=== PATIENT | male | born 1935 | race African-American/Black ===

== ENCOUNTER 2020-05-17 05:31 | Emergency (ER) | payer OTHER ==
[~2020-05-17] VITALS: Ht 182.9 cm; Wt 87.0 kg
[2020-05-17] MEDS ORDERED: SODIUM CHLORIDE 0.9% 250 ML IV ONE (07:00)
[2020-05-17 08:22] LABS: CLARITY URINE CLOUDY (CLEAR); COLOR URINE YELLOW (YELLOW); KETONES URINE NEGATIVE (NEGATIVE); LEUKOCYTE ESTERASE URINE NEGATIVE (NEGATIVE); NITRITE URINE NEGATIVE (NEGATIVE); OCCULT BLOOD URINE 2+ (NEGATIVE); PROTEIN URINE 1+ (NEGATIVE); SPECIFIC GRAVITY URINE 1.014 (1.005-1.030)
[2020-05-17 08:54] LABS: BASOPHILS % 0.3 % (0.0-2.0); EOSINOPHILS % 0.5 % (0.0-5.0); HEMATOCRIT. 35.6 % (42.0-52.0); HEMOGLOBIN. 12.4 g/dL (14.0-18.0); LYMPHOCYTES % 8.7 % (20.0-50.0); MEAN CORPUSCULAR HEMOGLOBIN 33.3 pg (28.0-32.0); MEAN CORPUSCULAR VOLUME 95.7 fL (80.0-94.0); MEAN PLATELET VOLUME 9.2 fl (7.4-10.4); MONOCYTES % 7.9 % (2.0-8.0); NEUTROPHILS % 82.6 % (40.0-76.0); PLATELET 142 x1000/uL (130-400); RED BLOOD CELL COUNT 3.72 mill/uL (4.7-6.1); RED CELL DISTRIBUTION WIDTH 13.2 % (11.6-14.6)
[2020-05-17] MEDS ORDERED: CEFTRIAXONE 1 G PREMIX 50 ML IV ONE (09:00)
[2020-05-17 09:45] LABS: CHLORIDE 111 mEq/L (98-107)
[2020-05-17 10:49] LABS: INR 1.1
[2020-05-17 12:41] VITALS: BP 142/64
== END 2020-05-17 13:10 | disposition short-term general hospital (02) ==
LOC: ER 05:31 → CANBEDREQ 16:24
DX: I63.9 Cerebral infarction, unspecified (principal); N39.0 Urinary tract infection, site not specified; E78.00 Pure hypercholesterolemia, unspecified; G30.9 Alzheimer's disease, unspecified; F02.80 Dementia in other diseases classified elsewhere, unspecified severity, without behavioral disturbance, psychotic disturbance, mood disturbance, and anxiety; I48.91 Unspecified atrial fibrillation; Z85.46 Personal history of malignant neoplasm of prostate; Z79.01 Long term (current) use of anticoagulants
CPT/HCPCS: 36415; 70450; 71045; 80053; 81003; 83605; 83880; 84484; 85025; 85610; 87086; 93005; 96361; 96365; 99285; J0696; J7030

== ENCOUNTER 2020-06-14 18:06 | Inpatient (IN) | payer OTHER ==
[~2020-06-14] VITALS: Ht 172.7 cm; Wt 61.9 kg
[2020-06-15] VITALS (7 sets, daily range): BP systolic 91–172; BP diastolic 41–90
[2020-06-15 00:05] LABS: HEMOGLOBIN. 12.2 g/dL (14.0-18.0); MEAN CORPUSCULAR HEMOGLOBIN 33.2 pg (28.0-32.0); MEAN CORPUSCULAR VOLUME 95.5 fL (80.0-94.0); MEAN PLATELET VOLUME 8.2 fl (7.4-10.4); PLATELET 147 x1000/uL (130-400); RED BLOOD CELL COUNT 3.66 mill/uL (4.7-6.1); RED CELL DISTRIBUTION WIDTH 13.1 % (11.6-14.6)
[2020-06-15 00:21] LABS: CHLORIDE 109 mEq/L (98-107)
[2020-06-15] MEDS ORDERED: IOHEXOL-350 100 ML BOTTLE ONE (03:52)
[2020-06-15 08:52] LABS: PLATELET ESTIMATE NORMAL
[2020-06-15] MEDS ORDERED: ONDANSETRON HCL 4MG/2ML INJ IV PRN (13:30)
[2020-06-15] MEDS ORDERED: ACETAMINOPHEN 325MG TABLET PO PRN (13:30)
[2020-06-15] MEDS ORDERED: AZITHROMYCIN 500 MG TABLET PO SCH (14:00)
[2020-06-15] MEDS ORDERED: AMLODIPINE 10MG TABLET PO SCH (14:00)
[2020-06-15] MEDS ORDERED: ENOXAPARIN 40MG/0.4ML SYR SUBCUT SCH (16:00)
[2020-06-15] MEDS: CEFTRIAXONE 1,000 MG in DEXTROSE 5% WATER 50 ML IV SCH (18:01)
[2020-06-15] MEDS ORDERED: DIGOXIN 500MCG/2ML AMP IV STA (19:00)
[2020-06-15] MEDS ORDERED: ENOXAPARIN 60MG/0.6ML SYR SUBCUT SCH (20:00)
[2020-06-15] MEDS ORDERED: SODIUM CHLORIDE 0.9% 500 ML IV ONE (22:00)
[2020-06-15] MEDS: DILTIAZEM HCL 30MG TABLET PO SCH (22:00)
[2020-06-16] VITALS (9 sets, daily range): BP systolic 96–111; BP diastolic 44–54
[2020-06-16] MEDS ORDERED: MIDODRINE HCL 5MG TABLET PO SCH (03:45)
[2020-06-16] MEDS: DILTIAZEM HCL 30MG TABLET PO SCH (06:00)
[2020-06-16 06:43] LABS: CHLORIDE 113 mEq/L (98-107)
[2020-06-16 06:53] LABS: BASOPHILS % 0.2 % (0.0-2.0); HEMATOCRIT. 32.2 % (42.0-52.0); HEMOGLOBIN. 11.2 g/dL (14.0-18.0); LYMPHOCYTES % 9.4 % (20.0-50.0); MEAN CORPUSCULAR HEMOGLOBIN 33.6 pg (28.0-32.0); MEAN CORPUSCULAR VOLUME 96.3 fL (80.0-94.0); MEAN PLATELET VOLUME 8.6 fl (7.4-10.4); MONOCYTES % 6.4 % (2.0-8.0); PLATELET 112 x1000/uL (130-400); RED BLOOD CELL COUNT 3.34 mill/uL (4.7-6.1)
[2020-06-16] MEDS ORDERED: ENOXAPARIN 60MG/0.6ML SYR SUBCUT SCH (09:00)
[2020-06-16] MEDS ORDERED: AZITHROMYCIN 250 MG TABLET PO SCH (09:00)
[2020-06-16] MEDS ORDERED: ASPIRIN 81MG EC TABLET PO SCH (09:00)
[2020-06-16] MEDS: CEFTRIAXONE 1,000 MG in DEXTROSE 5% WATER 50 ML IV SCH (10:05)
[2020-06-16] MEDS ORDERED: DIGOXIN 125MCG TABLET PO SCH (18:00)
== END 2020-06-16 16:00 | DRG 73 ==
LOC: ER 18:06 → 3WST 06-15 01:51 → ENRESERV 06-15 09:30
PROVIDERS: ADMIT Hospitalist; ATTEND Hospitalist
DX: G90.8 Other disorders of autonomic nervous system (principal); E43 Unspecified severe protein-calorie malnutrition; J18.9 Pneumonia, unspecified organism; G93.40 Encephalopathy, unspecified; D64.9 Anemia, unspecified; D69.6 Thrombocytopenia, unspecified; D72.825 Bandemia; E78.00 Pure hypercholesterolemia, unspecified; E78.5 Hyperlipidemia, unspecified; R77.8 Other specified abnormalities of plasma proteins; R00.0 Tachycardia, unspecified; R53.81 Other malaise; E86.0 Dehydration; E87.8 Other disorders of electrolyte and fluid balance, not elsewhere classified; F03.90 Unspecified dementia, unspecified severity, without behavioral disturbance, psychotic disturbance, mood disturbance, and anxiety; I10 Essential (primary) hypertension; I44.0 Atrioventricular block, first degree; I48.0 Paroxysmal atrial fibrillation; Z20.828 Contact with and (suspected) exposure to other viral communicable diseases; Z79.01 Long term (current) use of anticoagulants; Z85.46 Personal history of malignant neoplasm of prostate; Z86.73 Personal history of transient ischemic attack (TIA), and cerebral infarction without residual deficits; Z68.20 Body mass index [BMI] 20.0-20.9, adult; Z79.899 Other long term (current) drug therapy
CPT/HCPCS: 36415; 71045; 71275; 80048; 80061; 83735; 84443; 84484; 85025; 85379; 87426; 93005; 93306; 96372; 97161; 99285; J0696; J1160; J1650; J7040; J7060; Q9967